=== PATIENT | female | born 1945 | race Caucasian/White ===

== ENCOUNTER 2024-04-06 17:09 | Inpatient (IN) | payer MEDICARE ==
[~2024-04-06] VITALS: Ht 170.2 cm; Wt 90.7 kg
[2024-04-06 17:19] VITALS: TEMP 98.5
[2024-04-06] MEDS: SODIUM CHLORIDE 0.9% 1000ML 1,000 ML IV STA (17:50)
[2024-04-06] MEDS: ONDANSETRON HCL INJ 2MG/ML 2ML 2 MG/ML VIAL IV STA (17:51)
[2024-04-06 18:00] LABS: BASOPHILS # (AUTO) 0.1 (0.0-0.1); BASOPHILS % 0.9 % (0.0-1.0); EOSINOPHILS # (AUTO) 0.2 (0.0-0.4); EOSINOPHILS % 3.4 % (0.0-6.0); HEMATOCRIT 40.3 % (34.2-44.1); HEMOGLOBIN 13.4 g/dL (12.0-16.0); LYMPHOCYTES # (AUTO) 3.4 (1.0-3.2); MEAN CORPUSCULAR HEMOGLOBIN 30.3 pg (28-32); MEAN CORPUSCULAR HGB CONC 33.3 g/dL (31-35); MEAN CORPUSCULAR VOLUME 91.2 fL (81-99); MONOCYTES # (AUTO) 0.6 (0.2-0.8); MONOCYTES % 8.1 % (4.4-11.3); NEUTROPHILS # (AUTO) 2.8 (2.1-6.9); NEUTROPHILS % 39.6 % (38.7-80.0); PLATELET COUNT 285 x10e3/uL (140-360); RED BLOOD COUNT 4.42 x10e6/uL (3.6-5.1); RED CELL DISTRIBUTION WIDTH 13.3 % (11.7-14.4)
[2024-04-06 18:15] LABS: INR 0.95; PARTIAL THROMBOPLASTIN TIME 28.6 seconds (23.8-35.5); PROTHROMBIN TIME 13.3 seconds (11.9-14.5)
[2024-04-06 18:25] LABS: ALBUMIN 3.7 g/dL (3.5-5.0); ALBUMIN/GLOBULIN RATIO 0.9 (0.8-2.0); ANION GAP 14.9 mmol/L (8-16); BILIRUBIN,TOTAL 0.8 mg/dL (0.2-1.2); CALCIUM 8.9 mg/dL (8.4-10.2); CREATININE, SERUM 1.11 mg/dL (0.57-1.11); MAGNESIUM 1.9 MG/DL (1.3-2.1); TOTAL PROTEIN 7.6 g/dL (6.5-8.1)
[2024-04-06 18:26] LABS: POTASSIUM 2.9 mmol/L (3.5-5.1)
[2024-04-06] MEDS ORDERED: IOPAMIDOL 370 MG/ML 100 ML INFUS..BTL INJ ONE (18:31)
[2024-04-06] MEDS: POTASSIUM CHLORIDE 20 MEQ TAB CR PO STA (19:04)
[2024-04-06 19:22] LABS: CLARITY,URINE CLEAR (CLEAR); COLOR,URINE YELLOW (YELLOW); LEUKOCYTE ESTERASE ,URINE NEGATIVE (NEGATIVE); PH,URINE 6 (5 - 7)
[2024-04-06 19:23] LABS: BILIRUBIN,URINE NEGATIVE (NEGATIVE); GLUCOSE, URINE NEGATIVE (NEGATIVE); KETONES,URINE NEGATIVE (NEGATIVE); NITRITE,URINE NEGATIVE (NEGATIVE); PROTEIN,URINE DIPSTICK NEGATIVE (NEGATIVE); URINE UROBILINOGEN 0.2 mg/dL (0.2 - 1)
[2024-04-06 19:25] LABS: BACTERIA,URINE RARE /HPF; EPITHELIAL CELLS,URINE RARE /LPF; RBC,URINE 0-5 /HPF (0-5); WBC,URINE (MAN) 0-5 /HPF (0-5)
[2024-04-06] MEDS: HYDRALAZINE HCL 20 MG/ML VIAL IV PRN (21:04)
[2024-04-06] MEDS: METRONIDAZOLE 500MG/NS 100ML 100 ML IV SCH (21:04)
[2024-04-06] MEDS: CIPROFLOXACIN 400 MG/D5W 200ML 200 ML IV SCH (21:04)
[2024-04-06 21:22] VITALS: PULSE 56; RESP 18
[2024-04-06 22:36] VITALS: BP 166/66; PULSE 53; RESP 18; TEMP 97.4; O2SAT 100
[2024-04-06] MEDS ORDERED: LEVOTHYROXINE75 MCG PO (23:12)
[2024-04-06] MEDS ORDERED: ESCITALOPRAM OX20 MG PO (23:12)
[2024-04-06] MEDS ORDERED: AMLODIPINE BESYL5 MG PO (23:12)
[2024-04-06] MEDS ORDERED: ASPIRIN81 MG PO (23:13)
[2024-04-06 23:25] VITALS: BP 166/66; PULSE 53; RESP 18; TEMP 97.4; O2SAT 100
[2024-04-07] VITALS (9 sets, daily range): BP systolic 120–176; BP diastolic 63–72; PULSE 48–75; RESP 16–18; TEMP 97.1–97.7; O2SAT 96–100
[2024-04-07] MEDS: SODIUM CHLORIDE 0.9% 1000ML 1,000 ML IV SCH (00:16)
[2024-04-07 05:10] LABS: BASOPHILS # (AUTO) 0.1 (0.0-0.1); BASOPHILS % 0.9 % (0.0-1.0); EOSINOPHILS # (AUTO) 0.2 (0.0-0.4); EOSINOPHILS % 2.9 % (0.0-6.0); HEMATOCRIT 37.7 % (34.2-44.1); HEMOGLOBIN 12.4 g/dL (12.0-16.0); LYMPHOCYTES % 50.3 % (18.0-39.1); MEAN CORPUSCULAR HEMOGLOBIN 30.3 pg (28-32); MEAN CORPUSCULAR HGB CONC 32.9 g/dL (31-35); MEAN CORPUSCULAR VOLUME 92.2 fL (81-99); MONOCYTES # (AUTO) 0.5 (0.2-0.8); MONOCYTES % 7.7 % (4.4-11.3); NEUTROPHILS # (AUTO) 2.2 (2.1-6.9); NEUTROPHILS % 38.2 % (38.7-80.0); PLATELET COUNT 253 x10e3/uL (140-360); RED BLOOD COUNT 4.09 x10e6/uL (3.6-5.1); RED CELL DISTRIBUTION WIDTH 13.5 % (11.7-14.4); WHITE BLOOD COUNT 5.86 x10e3/uL (4.8-10.8)
[2024-04-07 05:54] LABS: ALBUMIN 3.3 g/dL (3.5-5.0); ANION GAP 13.2 mmol/L (8-16); BILIRUBIN,TOTAL 0.6 mg/dL (0.2-1.2); CALCIUM 8.8 mg/dL (8.4-10.2); CREATININE, SERUM 0.92 mg/dL (0.57-1.11); TOTAL PROTEIN 6.6 g/dL (6.5-8.1)
[2024-04-07 05:56] LABS: POTASSIUM 3.2 mmol/L (3.5-5.1)
[2024-04-07] MEDS ORDERED: METOPROLOL TARTRATE INJ 1 MG/ML VIAL IV PRN (07:45)
[2024-04-07] MEDS ORDERED: ALBUTEROL/IPRATROPIUM 3 ML NEB NEB PRN (07:45)
[2024-04-07] MEDS: POTASSIUM CHLORIDE 10MEQ/100ML 100 ML IV SCH (13:00)
[2024-04-07] MEDS: POTASSIUM CHLORIDE 10MEQ/100ML 100 ML ONE (20:14)
[2024-04-08] VITALS (9 sets, daily range): BP systolic 127–189; BP diastolic 72–90; PULSE 50–68; RESP 18; TEMP 97.4–98.3; O2SAT 95–99
[2024-04-08] MEDS: ACETAMINOPHEN 325 MG TAB PO PRN (04:46)
[2024-04-08 06:44] LABS: BASOPHILS % 0.7 % (0.0-1.0); EOSINOPHILS # (AUTO) 0.2 (0.0-0.4); EOSINOPHILS % 4.1 % (0.0-6.0); HEMATOCRIT 37.7 % (34.2-44.1); HEMOGLOBIN 12.4 g/dL (12.0-16.0); LYMPHOCYTES # (AUTO) 2.8 (1.0-3.2); LYMPHOCYTES % 52.5 % (18.0-39.1); MEAN CORPUSCULAR HEMOGLOBIN 30.5 pg (28-32); MEAN CORPUSCULAR HGB CONC 32.9 g/dL (31-35); MEAN CORPUSCULAR VOLUME 92.6 fL (81-99); MONOCYTES # (AUTO) 0.4 (0.2-0.8); MONOCYTES % 7.4 % (4.4-11.3); NEUTROPHILS # (AUTO) 1.9 (2.1-6.9); NEUTROPHILS % 35.3 % (38.7-80.0); PLATELET COUNT 240 x10e3/uL (140-360); RED BLOOD COUNT 4.07 x10e6/uL (3.6-5.1); RED CELL DISTRIBUTION WIDTH 13.4 % (11.7-14.4); WHITE BLOOD COUNT 5.39 x10e3/uL (4.8-10.8)
[2024-04-08 07:19] LABS: ANION GAP 13.1 mmol/L (8-16); CALCIUM 8.3 mg/dL (8.4-10.2); CREATININE, SERUM 0.85 mg/dL (0.57-1.11)
[2024-04-08 07:53] LABS: POTASSIUM 3.1 mmol/L (3.5-5.1)
[2024-04-08] MEDS: HYDRALAZINE HCL 25 MG TAB PO SCH (09:20)
[2024-04-09] VITALS (11 sets, daily range): BP systolic 141–192; BP diastolic 61–75; PULSE 50–68; RESP 17–20; TEMP 97.8–98.4; O2SAT 96–99
[2024-04-09] MEDS: ONDANSETRON HCL INJ 2MG/ML 2ML 2 MG/ML VIAL IV PRN (08:20)
[2024-04-09 08:39] LABS: BASOPHILS # (AUTO) 0.1 (0.0-0.1); EOSINOPHILS # (AUTO) 0.2 (0.0-0.4); EOSINOPHILS % 3.1 % (0.0-6.0); HEMATOCRIT 39.4 % (34.2-44.1); HEMOGLOBIN 12.9 g/dL (12.0-16.0); LYMPHOCYTES # (AUTO) 2.3 (1.0-3.2); LYMPHOCYTES % 43.5 % (18.0-39.1); MEAN CORPUSCULAR HEMOGLOBIN 30.6 pg (28-32); MEAN CORPUSCULAR HGB CONC 32.7 g/dL (31-35); MEAN CORPUSCULAR VOLUME 93.4 fL (81-99); MONOCYTES # (AUTO) 0.5 (0.2-0.8); MONOCYTES % 9.6 % (4.4-11.3); NEUTROPHILS # (AUTO) 2.2 (2.1-6.9); NEUTROPHILS % 42.6 % (38.7-80.0); PLATELET COUNT 233 x10e3/uL (140-360); RED BLOOD COUNT 4.22 x10e6/uL (3.6-5.1); RED CELL DISTRIBUTION WIDTH 13.6 % (11.7-14.4)
[2024-04-09 08:55] LABS: CALCIUM 8.6 mg/dL (8.4-10.2); CREATININE, SERUM 0.88 mg/dL (0.57-1.11)
[2024-04-09] MEDS: POTASSIUM CHLORIDE 20MEQ/100ML 100 ML IV ONE (11:42)
[2024-04-09] MEDS: MELATONIN 3 MG TAB PO PRN (23:44)
[2024-04-10] VITALS (10 sets, daily range): BP systolic 114–165; BP diastolic 52–74; PULSE 49–62; RESP 16–19; TEMP 97.3–98.4; O2SAT 96–99
[2024-04-10] MEDS: Morphine 4mg INJECTION 4 MG/ML INJ IV PRN (08:01)
[2024-04-11] VITALS (7 sets, daily range): BP systolic 139–177; BP diastolic 67–83; PULSE 49–64; RESP 18–20; TEMP 97.8–98.2; O2SAT 95–98
[2024-04-11] MEDS ORDERED: METRONIDAZOLE500 MG PO (12:22)
[2024-04-11] MEDS ORDERED: HYDRALAZINE HCL25 MG PO (12:22)
[2024-04-11] MEDS ORDERED: PANTOPRAZOLE SO40 MG PO (12:22)
[2024-04-11] MEDS ORDERED: ONDANSETRON ODT4 MG PO (12:22)
[2024-04-11] MEDS ORDERED: ACETAMINOPHEN325 M1 PO (12:22)
[2024-04-11] MEDS ORDERED: CIPRO500 MG PO (12:22)
== END 2024-04-11 14:15 | disposition home or self-care (01) | DRG 392 ==
LOC: ER 17:50 → ERHOLD 21:03 → MED/SURG 22:41
PROVIDERS: ADMIT Internal Medicine; ATTEND Internal Medicine
DX: K57.20 Diverticulitis of large intestine with perforation and abscess without bleeding (principal); K50.90 Crohn's disease, unspecified, without complications; N17.9 Acute kidney failure, unspecified; N39.0 Urinary tract infection, site not specified; E87.6 Hypokalemia; I16.0 Hypertensive urgency; E86.0 Dehydration; R31.29 Other microscopic hematuria; R35.1 Nocturia; I10 Essential (primary) hypertension; E03.9 Hypothyroidism, unspecified; F41.9 Anxiety disorder, unspecified; E66.9 Obesity, unspecified; Z68.31 Body mass index [BMI] 31.0-31.9, adult; R63.4 Abnormal weight loss; Z90.49 Acquired absence of other specified parts of digestive tract; Z89.622 Acquired absence of left hip joint; Z89.521 Acquired absence of right knee; Z79.899 Other long term (current) drug therapy; Z79.82 Long term (current) use of aspirin
CPT/HCPCS: 36415; 71045; 74177; 80048; 80053; 81001; 83735; 85025; 85610; 85730; 87086; 93005; 94799; 99284; J0360; J2270; J2405; J2470; J3480; J7030; Q9967

== ENCOUNTER → 2024-05-02 | Outpatient (REF) | payer MEDICARE, OTHER ==
[~2024-05-02] MED LIST: ACETAMINOPHEN325 M1 PO; AMLODIPINE BESYL5 MG PO; ASPIRIN81 MG PO; CIPRO500 MG PO; DIATRIZOATE MEGL/DIATRIZOA SOD 30 ML BTL PO ONE; ESCITALOPRAM OX20 MG PO; HYDRALAZINE HCL25 MG PO; IOPAMIDOL 370 MG/ML 100 ML INFUS..BTL INJ ONE; LEVOTHYROXINE75 MCG PO; METRONIDAZOLE500 MG PO; ONDANSETRON ODT4 MG PO; PANTOPRAZOLE SO40 MG PO
== END ==
LOC: CT 15:47
PROVIDERS: ATTEND Nurse Practitioner
DX: K57.92 Diverticulitis of intestine, part unspecified, without perforation or abscess without bleeding (principal)
CPT/HCPCS: 74177; Q9963; Q9967